=== PATIENT | male | born 1960 | race Caucasian/White ===

== ENCOUNTER 2019-09-16 06:25 | Inpatient (IN) ==
[~2019-09-16 06:25] MED LIST: ROPIVACAINE HCL/PF 100 MG, EPINEPHrine 0.2 MG, KETOROLAC TROMETHAMINE 30 MG in NORMAL S... IJ PRN; TRANEXAMIC ACID 1,000 MG in NORMAL SALINE 100 ML IV PRN; ceFAZolin SODIUM 1 GM VIAL IV PRN
[2019-09-16] MEDS: RINGER'S SOLUTION,LACTATED 1,000 ML IV PRN ×3 (07:15→09:20)
--- NOTE | 2019-09-16 07:20 | ANES ---
Anesthesia Pre Procedure Eval Vitals/Labs: Last Vital Signs Temp 36.4 C 09/16/19 06:46 Pulse 52 L 09/16/19 06:46 Resp 18 09/16/19 06:46 BP 140/83 H 09/16/19 06:46 Pulse Ox 96 09/16/19 06:46 HOME MEDICATIONS Atorvastatin Calcium 40 mg PO DAILY 02/19/19 [Last Taken 09/15/19] Hydrochlorothiazide 12.5 mg PO DAILY 02/19/19 [Last Taken 09/12/19] Verapamil HCl [Verapamil ER] 240 mg PO BID 02/19/19 [Last Taken 09/16/19] acetaminophen 500 mg tablet 1,000 mg PO Q6H PRN tab 07/25/19 [Last Taken ] meloxicam 15 mg tablet 15 mg PO DAILY 07/25/19 [Last Taken 09/09/19] Allergies/Adverse Reactions: Allergies Allergy/AdvReac Type Severity Reaction Status Date / Time codeine AdvReac Intermediate Changes in Verified 09/16/19 06:55 LOC - Planned Procedure Planned Procedure: Left Total Knee Arthroplasty Medication List Reviewed:: Yes Allergies Verified: Yes Medical History (Last Reviewed 09/16/19 @ 07:19 by Cole Bonds CRNA) Blood clot in vein (Acute) Onset Date: 08/2017 subclavian due to rib compression Wears glasses Wears partial dentures Hypercholesteremia Hypertension Surgical History (Last Reviewed 09/16/19 @ 07:19 by Cole Bonds CRNA) History of back surgery Onset Date: 1996 x 3 surgeries History of hernia repair Onset Date: 10/2010 History of resection of rib Onset Date: 08/2017 History of total knee replacement Onset Date: 2004 Right history of mass removed Onset Date: 2014 begnin-left shoulder Family History (Last Reviewed 09/16/19 @ 07:19 by Cole Bonds CRNA) Mother Lymphoma Father Meningitis spinal Sister Alive and well Sister Alive and well Sister Alive and well Sister Alive and well Sister Daughter H/O thyroidectomy Son Alive and well - Family Anesthesia History Family History:: no untoward family reactions to anesthesia, no familial bleeding tendencies, no family history of clotting disorders, no family history of premature - Airway/Neck/Teeth Within Normal Limits:: Yes Denture Type: Partial upper, Partial lower Mallampatti Score: 2 Thyromental (T-M) distance: > 6 cm Mandibulo Hyoid distance: > 3 cm - Respiratory Respiratory Physical: lungs clear Smoking Status: Former smoker Discussed smoking cessation including day of surgery: No Sleep Apnea currently treated: Yes - Cardiovascular Tolerate Activity: Good Heart Sounds: S1 & S2, Regular - Anesthesia Assessment and Plan ASA Class: PS, II Anesthesia Type Plan: Block - Left ultrasound guided adductor canal nerve block for postop analgesia, Spinal
[2019-09-16] MEDS ORDERED: ceFAZolin SODIUM 1 GM VIAL ONE (07:21)
[2019-09-16] MEDS ORDERED: LIDOCAINE HCL 20 ML VIAL ONE (07:24)
[2019-09-16] MEDS ORDERED: NALOXONE HCL 0.4 MG/ML VIAL ONE (07:25)
[2019-09-16] MEDS ORDERED: ONDANSETRON HCL/PF 2 MG/ML VIAL ONE (07:25)
[2019-09-16] MEDS ORDERED: MIDAZOLAM HCL/PF 5 MG/ML VIAL ONE (07:25)
[2019-09-16] MEDS ORDERED: fentaNYL CITRATE/PF 50 MCG/ML AMPUL ONE (07:25)
[2019-09-16] MEDS ORDERED: PROPOFOL VIAL IV ONE (07:26)
[2019-09-16] MEDS ORDERED: ROCURONIUM BROMIDE 10 MG/ML VIAL ONE (07:26)
[2019-09-16] MEDS ORDERED: BUPIVACAINE HCL/EPINEPHRINE 50 ML VIAL ONE (07:26)
[2019-09-16] MEDS ORDERED: MAGNESIUM HYDROXIDE 30 ML UDC PO PRN (10:06)
[2019-09-16] MEDS ORDERED: MAG HYDROX/ALUMINUM HYD/SIMETH 30 ML UDC PO PRN (10:06)
[2019-09-16] MEDS ORDERED: MORPHINE SULFATE 2 MG/ML DISP.SYRIN IV PRN (10:06)
[2019-09-16] MEDS ORDERED: ACETAMINOPHEN 500 MG TABLET PO PRN (10:06)
[2019-09-16] MEDS ORDERED: oxyCODONE HCL/ACETAMINOPHEN 1 TAB TABLET PO PRN (10:06)
[2019-09-16] MEDS ORDERED: ONDANSETRON HCL/PF 2 MG/ML VIAL IV PRN (10:06)
--- NOTE | 2019-09-16 10:44 | ANES ---
Post Anesthesia Discharge - Transfer of Care Transfer of Care handoff given to nurse: Yes - Discharge from PACU Discharge from PACU when meets criteria: Yes - Discharge to [facility] Discharge to [facility]-no complications/pt stable: Yes
--- NOTE | 2019-09-16 10:46 | ANES ---
Anesthesia Procedure Note Procedure Note: ANESTHESIA PROCEDURE NOTE Date of Procedure: 09/16/2019. Time of procedure: 0740. Performed by: Cole Bonds CRNA Casino Manager: None. Preprocedure diagnosis: Left knee degenerative joint disease. Post procedure diagnosis: Same. Procedure: Left ultrasound guided adductor canal block for postoperative analgesia. Indications: The patient is a 59-year-old male, requesting left ultrasound- guided abductor canal block for postoperative analgesia related to left total knee arthroplasty. Findings: See below. Details of the procedure: The tissue over the intended target site was cleansed with ChloraPrepand draped in a sterile fashion. 2 ml Lidocaine 1 % was infiltrated to the skin and subcutaneous tissue at the intended target site. Under sterile technique and ultrasound guidance a 20-gauge block needle was inserted through the left sartorius muscle to the saphenous nerve just anterior and medial to the superficial femoral artery and vein. 15 mL's of 0.5% bupivacaine was injected after negative aspiration for blood. Needle tip and spread of local anesthetic surrounding the saphenous nerve was observed throughout the injection with real time ultrasound visualization. The needle was then removed intact. No complications were noted. The images were retained in the Hospital medical database. EBL: Minimal. Fluids: N/A. Specimen: N/A. Post procedure condition: The patient tolerated the procedure well. No complications were noted. Thank you for this consultation. Cole Bonds CRNA
[2019-09-16] MEDS: NORMAL SALINE 1,000 ML IV PRN ×2 (11:29→20:03)
--- NOTE | 2019-09-16 12:33 | ANES ---
Post Anesthesia Assessment - Vital Signs Vitals: Last Vital Signs Temp 36.4 C 09/16/19 11:30 Pulse 54 L 09/16/19 12:14 Resp 16 09/16/19 11:30 BP 140/77 H 09/16/19 12:14 Pulse Ox 96 09/16/19 12:14 Airway Patency: Normal - Mental Status Level Of Consciousness: Awake - Pain Level Pain Score: 0 - N/V Assessment Nausea/Vomiting Presence: None Dehydration:: No
[2019-09-16] MEDS: oxyCODONE HCL/ACETAMINOPHEN 1 TAB TABLET PO PRN ×3 (12:51→21:03)
[2019-09-16] MEDS: ceFAZolin SODIUM 2 GM in DEXTROSE 5 % IN WATER 50 ML IV SCH ×4 (14:16→21:04)
[2019-09-16] MEDS: VERAPAMIL HCL 240 MG TABLET.SA PO SCH (20:04)
[2019-09-16] MEDS ORDERED: SENNOSIDES/DOCUSATE SODIUM 1 TAB TABLET PO SCH (21:00)
[2019-09-17] MEDS: oxyCODONE HCL/ACETAMINOPHEN 1 TAB TABLET PO PRN ×5 (01:07→16:38)
[2019-09-17 05:50] LABS: Anion Gap 8.1 mmol/L (6.8-13.8); Calcium * 8.4 mg/dL (7.9-10.9); Carbon Dioxide 27.3 mmol/L (24-32.6); Estimated Creat Clear 76.5; Potassium 4.4 mmol/L (3.4-4.6)
[2019-09-17 05:51] LABS: Hematocrit 37.9 % (42.0-52.0); Hemoglobin 12.1 gm/dL (13.5-18.0); Mean Cell Volume 91.8 fl (78-100); Mean Corpuscular Hemoglobin 29.3 pg (27-31); Mean Corpuscular Hgb Conc 31.9 g/dl (32-36); Mean Platelet Volume 11.7 fl (8-11.3); Platelet Count 161 K/mm3 (150-450); Red Blood Count 4.13 M/mm3 (4.7-6.0); White Blood Count 7.8 K/mm3 (4.0-10.5)
[2019-09-17] MEDS: ceFAZolin SODIUM 2 GM in DEXTROSE 5 % IN WATER 50 ML IV SCH ×2 (06:29)
[2019-09-17] MEDS: VERAPAMIL HCL 240 MG TABLET.SA PO SCH (08:54)
[2019-09-17] MEDS ORDERED: HYDROCHLOROTHIAZIDE 12.5 MG CAPSULE PO SCH (09:00)
[2019-09-17] MEDS ORDERED: ROSUVASTATIN CALCIUM 20 MG TABLET PO SCH (09:00)
[2019-09-17] MEDS ORDERED: ENOXAPARIN SODIUM 40 MG/0.4 ML SYRG SC SCH (09:07)
--- NOTE | 2019-09-17 09:15 | OR ---
Operative Report - Dictated Report Narrative: Date: 09/16/2019 Preoperative diagnosis: Left knee degenerative joint disease. Postoperative diagnosis: Left knee degenerative joint disease. Procedure: Left total knee arthroplasty. Surgeon: Jeff Shrestha M.D. Line Repairer Tower: Jorge Stephens PA-C provided a set of essential, skilled, educated hands that assisted in positioning, transfer, retraction, manipulation, irrigation, closure of wounds, and placement of dressings all of which could not be provided by the available surgical crew. Anesthesia: Spinal with regional block and local periarticular joint injection. Complications: None Specimens: Bone for disposal. Estimated blood loss: Minimal. Tourniquet time: 71 minutes at 300 millimeters of mercury. Retained implants: Depuy Attune size 6 standard lugged cemented posterior stabilized femoral component. Size 6 fixed-bearing cemented tibial platform. 6 by 8 millimeter posterior stabilized cross-linked tibial insert. 41 millimeter medialized patella button. Indications: Moreno is a 59-year-old male who has been followed in my clinic for period of time with significant complaints of left knee pain consistent with arthritic changes. They had failed conservative measures including but not limited to activity modification, passage of time, medications, and other conservative measures. Patient wished to proceed with surgical treatment. The risks, benefits, and alternatives were discussed in clinic. The risks of , blood clots, bleeding, infection, nerve/tendon blood vessel/ injury, malposition of components, intraoperative fracture, postoperative limited range of motion, persistent pain, failure of components, and need for additional procedures. Patient wished to proceed consent was obtained after answering all questions. Procedure: After marking the correct extremity on the floor, the patient was taken to the operating room. A timeout was performed. IV antibiotics consisting of 2 g of Ancef were administered prior to the procedure. A regional followed by spinal anesthetic was induced by anesthesia. on the operative table with all bony prominences well-padded. Jordan catheter was placed and a bump was placed under the operative side buttock. SCDs and GREG hose were utilized on the nonoperative leg. A well-padded tourniquet was applied to the operative thigh. The operative leg was then pre-scrubbed with alcohol prepped and draped in a standard sterile fashion. After exsanguinating the extremity with an Esmarch bandage, the tourniquet was inflated. After marking out the anterior knee for standard incision centered over the patella, the skin was incised and dissected down to the joint retinaculum. The joint retinaculum was marked out as well as the horizontal axis of the patella, and a standard medial parapatellar arthrotomy was then made. The most proximal aspect of the quadriceps tendon and the patella tendon insertion were protected from release. A partial synovectomy was performed as well as a resection of the infrapatellar fat pad. The distal femoral fat pad proximal to the trochlea was also resected using cautery. The soft tissues were elevated off the medial aspect of the proximal tibia using a Wyatt elevator ensuring that we did not transect the medial collateral ligament. Upon initial evaluation range of motion was approximately 0 degrees to 120 degrees of flexion. There were signs of advanced arthrosis in the patellofemoral and medial joint spaces. There were large marginal osteophytes which were removed with a rongeur. The knee was hyperflexed and the patella was tucked laterally. Protecting the surrounding soft tissues with Homans, an entry drill was placed down the femoral canal using Whitesides line for guidance into the entry point. The intramedullary femoral alignment jani was utilized in order to cut the distal femur in 5 of valgus resecting 9 millimeters of bone. Next the distal femur was sized to a size 6. An anterior referencing guide was utilized to place the distal femoral cutting block in 3 of external rotation. This was pinned into place. The rotation was confirmed both visually and based on anatomic landmarks. The 4 in 1 cutting jig of the appropriate size was utilized in order to make all bony cuts. Retractors were utilized in order to protect surrounding soft tissues. This cut did not result in any excessive notching. We then cut the box centered over the distal femur. This allowed for resection of the anterior and posterior cruciate ligaments. I then turned my attention to the preparation of the tibia. Using an extra medullary tibial alignment jani, 4 millimeters of bone was resected off the medial articular surface. This was made perpendicular to the mechanical axis of the joint with the alignment jani centered over the ankle mortise. The alignment jani was parallel to the mechanical axis, centered over the medial one third of the tibial tubercle, paralleling the anterior surface of the tibia. We then turned our attention to the remaining meniscus and soft tissues. These were removed while protecting the surrounding ligaments and soft tissues. The marginal osteophytes off the anterior, posterior, medial, lateral aspects of the femur and tibia were removed. The tibia was sized out to a size 6. Next the tibia was drilled and punched in an externally rotated position as confirmed with a drop jani. Next the trial femur and a series of tibial inserts were utilized in order to allow for full extension and maximal flexion. It was found that a 8 millimeter insert gave the best range of motion and stability at multiple flexion points as well as at full extension there was less than 2 mm of gapping both medially and laterally. There is minimal anterior translation with the knee at 90 of flexion and no signs of being able to dislocate the knee. The patella was then prepared. The initial thickness was 26 millimeters. This was reamed down to 16 millimeters parallel to the anterior surface of the patella. It was sized out to a size 41 mm medialized patella button. This was then drilled and trialed. Without any medial restraint the patella tracked appropriately and did not sublux or dislocate. At this point, it was felt these were the appropriate sized implants and all trials were removed. The standard periarticular joint injection consisting of ropivacaine, Toradol, and epinephrine were injected into the periarticular joint tissues. The bony surfaces were thoroughly irrigated with a pulsatile-suction saline irrigation device. A bone plug from the prior resected anterior chamfer cut was placed into the drill hole at the distal femur. The bony surfaces were then dried in preparation for placement of the implants. The cement was vacuum mixed per the pullman car clerk's instructions. The cement was placed on the dry bony surfaces and posterior aspect of the implants. The implants were impacted into place, removing all extruded cement. At this point anesthesia administered tranexamic acid per protocol intravenously. The knee was placed in extension with axial loading with the trial insert while the cement cured. A dilute 0.35% betadyne-saline solution was used to irrigate the knee and allowed to sit in the knee while the cement cured. Once the cement cured, all remaining extruded cement was removed. The knee was placed through a range of motion with the trial insert to ensure appropriate range of motion and stability. Final range of motion was approximately 0 to 130 degrees. The knee was again thoroughly irrigated with pulsatile saline lavage. The final polyethylene insert was then impacted into place ensuring no retained soft tissues. The remaining geeta articular joint injection was injected. The knee was then packed with lap sponges which were soaked with dilute betadyne solution and the tourniquet was let down. Pressure was held for approximately 2 minutes and then hemostasis was obtained using electrocautery to coagulate any bleeding vessels. The knee was then placed over a triangle and the arthrotomy was closed with interrupted #1 Vicryl after thoroughly irrigating the joint. The deep and subcutaneous tissues were closed with interrupted 0 and 3-0 Vicryl respectively. Skin was closed with a running subcutaneous 3-0 Monocryl and Prineo dressing. 4 x 4's, ABD, Sof-Rol, and a full leg Torrey wrap were applied. All sponge, needle, blade, and instrument counts were correct prior to closing the wounds. Postoperative condition: The patient was awoken and transferred to the postanesthesia care unit in stable condition. Plan is to be admitted to the inpatient medical/surgical floor postoperatively for 24 hours of IV antibiotics, physical therapy, occupational therapy, and medical co-management. Patient will be weightbearing as tolerated with range of motion as tolerated. DVT prophylaxis will be with SCDs, GREG hose, and pharmacological anticoagulation. Anticipated hospital stay is approximately 2-4 days.
--- NOTE | 2019-09-17 12:30 | DS ---
(1) Status post total left knee replacement using cement Problem: Acute Date of Discharge:: 09/17/19 Description of Stay: 59-year-old male postop day 1 status post left total knee arthroplasty. Patient is an uncomplicated stay. He notes he has had some moderate pain, however his pain is well controlled with p.o. pain medication. Patient has met all PT goals and ambulated without complication and passed stairs. Plan to discharge patient home. Exam today of the left lower extremity revealed sensation intact light touch, distal capillary refill brisk, 4+/5 flexion/extension of the knee, pernio dressing in place without significant drainage or erythema, diffuse tenderness about the left knee. Patient is return to p.o. diet without complication. He is using p.o. pain medication. Discussed with patient the following recommendations to continue: -PT/OT progress as tolerated -Weightbearing as tolerated, assistive device PRN -P.o. diet as tolerated -P.o. pain medication, Percocet 5/325 mg tabs 1-2 tabs every 4-6 hours as needed for pain p.o. -DVT prophylaxis: Lovenox until 10 days postoperatively followed by 325 mg aspirin daily for 6 weeks, GREG johnsone knee-high -Follow-up with orthopedic outpatient clinic at 2 weeks postoperative -Monitor surgical dressing for any significant erythema or drainage -Begin outpatient PT -Call orthopedic clinic with any acute questions or concerns -Disposition plan to discharge home Procedures Performed: see notes below List Procedures: Left total knee arthroplasty Results and Findings: Lab Pending Results 09/17/19 05:30: WBC 7.8, RBC 4.13 L, Hgb 12.1 L, Hct 37.9 L, MCV 91.8, MCH 29.3, MCHC 31.9 L, RDW 14.0, Plt Count 161, MPV 11.7 H 09/17/19 05:30: Sodium 137, Plasma Sodium 137, Potassium 4.4, Chloride 106, Carbon Dioxide 27.3, Anion Gap 8.1, BUN 12, Creatinine 1.09, Est GFR (Non-Af Amer) 74, BUN/Creatinine Ratio 11.0, Random Glucose 113 H, Calcium 8.4 Discharge Location: Home Disposition: Home self-care Condition: Good Discharge Activity: Activity as tolerated, Weight bearing Discharge Diet: General/regular food Referrals: Jorge Stephens PA [[facility]] - 11/06/19 9:00 am Problem Oriented Discharge Instructions to Patient/Family: Total Knee Replacement, Care After, [id number], Form - Excuse from Work, School, or Physical Activity Print Language (Malagasy or Ghanaian Available): Malagasy Additional Patient Instructions (free text): Physical Therapy at [facility] in [place], [place] on September 18 at 11:30am. Please fax Order to fax# [phone]. Follow up Orthopedic office appointment with Dr. Shrestha on SundayOctober 01 at 9:00am. Prescriptions (Any new or edited meds): Enoxaparin Sodium [Lovenox] 40 mg SC Q24H #9 disp.syrin Transmission Status: Pending to [place], [place] oxyCODONE HCL/ACETAMINOPHEN [Percocet 5 MG/325 MG] 1 - 2 tab PO Q4H PRN #90 tab PRN Reason: Severe Pain (Pain Scale 7-10) Transmission Status: Received by [place], [place] Complete Home Medications List: Complete Home Medication List: Atorvastatin Calcium 40 mg PO DAILY 02/19/19 Hydrochlorothiazide 12.5 mg PO DAILY 02/19/19 Verapamil HCl [Verapamil ER] 240 mg PO BID 02/19/19 acetaminophen 500 mg tablet 1,000 mg PO Q6H PRN tab 07/25/19 meloxicam 15 mg tablet 15 mg PO DAILY 07/25/19 Enoxaparin Sodium [Lovenox] 40 mg SC Q24H #9 disp.syrin 09/17/19 oxyCODONE HCL/ACETAMINOPHEN [Percocet 5 MG/325 MG] 1 - 2 tab PO Q4H PRN #90 tab 09/17/19 Amb Orders for Discharge: PT Evaluation and Treatment* Location: None Selected
[2019-09-17 16:53] VITALS: BP 140/88
== END 2019-09-17 16:45 | disposition home or self-care (01) | DRG 470 ==
LOC: SUR 06:25 → MS 06:40 → EDSTATUS 08:00
PROVIDERS: ADMIT Orthopaedic Surgery; ATTEND Orthopaedic Surgery
DX: M17.12 Unilateral primary osteoarthritis, left knee; Z86.718 Personal history of other venous thrombosis and embolism; E78.5 Hyperlipidemia, unspecified; I10 Essential (primary) hypertension
CPT/HCPCS: 36415; 73560; 80048; 85027; 97110; 97116; 97161; J2405